=== PATIENT | male | born 1985 | race Caucasian/White ===

== ENCOUNTER 2018-04-15 12:33 | Emergency (ER) | payer MEDICAID ==
[2018-04-15] MEDS ORDERED: NS 1,000 ML IV ONE (13:14)
--- NOTE | 2018-04-15 13:16 | EDPHY ---
H & P Time Seen by Provider: 04/15/18 13:00 HPI/ROS: CHIEF COMPLAINT: Headache, palpitations HISTORY OF PRESENT ILLNESS: A 32-year-old male presents emergency department with concern regarding headache that he had that woke him at 4:00 a.m. This morning. He describes a severe retro-orbital and bitemporal headache. Headache resolved relatively quickly after taking some ibuprofen. Of note, he also reports that for the last 2 weeks he has been bothered with a severe head cold, alternating between being very congested and having clear nasal discharge. No fever. No sore throat. No ear pain. He also relates a history of occasional palpitations which seemed to be worse over the last 2 weeks. Feels some tingling in both legs, in a stocking-glove distribution from the knees on down. He also relates some weakness. No fevers or chills. No shortness of breath or chest pain associated with palpitations. No nausea, vomiting, or diarrhea. Patient states he has been drinking lots of fluids. REVIEW OF SYSTEMS: A comprehensive 10 system review of systems was reviewed and is otherwise negative aside from elements mentioned in the history of present illness and medical decision making. PAST MEDICAL HISTORY: Anxiety. Patient denies hypertension, diabetes, high cholesterol, migraines, family history of stroke. Family history sudden aneurysmal . SOCIAL HISTORY: Stop drinking 3 weeks ago and stopped using marijuana 3 weeks ago. Prior to that reports drinking moderately 3 to 4 times a week. VITAL SIGNS Reviewed by me. Afebrile. GENERAL: Well-developed, well-nourished, resting comfortably in no respiratory distress. HEENT: Atraumatic. Eyes: No icterus, no injection. SERVANDO, EOMI. Tympanic membranes are clear bilaterally. Mouth: moist mucous membranes. No erythema or lesions. Neck: supple with no adenopathy. Negative Kernig's. Negative Brudzinski's. No meningismus. LUNGS: Clear to auscultation bilaterally, no wheezes, rhonchi or rales. CARDIAC: Regular rate and rhythm, no rubs, murmurs or gallops. ABDOMEN: Soft, nontender, nondistended, bowel sounds normal. BACK: No CVA tenderness. EXTREMITIES: No trauma. No edema. Range of motion is normal throughout. NEURO: Alert and oriented, cranial nerves 2-12 are intact. Motor strength 5/ 5 throughout sensory exam is normal throughout. SKIN: Warm and dry, no rash. PSYCHIATRIC: Normal mentation, no agitation. Smoking Status: Former smoker Constitutional: Initial Vital Signs Temperature (C) 36.6 C 04/15/18 12:36 Heart Rate 69 04/15/18 12:36 Respiratory Rate 18 04/15/18 12:36 Blood Pressure 128/87 H 04/15/18 12:36 O2 Sat (%) 99 04/15/18 12:36 O2 Delivery Mode Room Air Allergies/Adverse Reactions: No Known Allergies Allergy (Verified 04/15/18 12:39) Home Medications: Medication Instructions Recorded Hydrocodone/APAP 5/325 [[place] 1 - 2 tab PO Q4H PRN #15 tab 06/22/15 5/325 (*)] Hydrocodone/APAP 5/325 [[place] 1 tab PO Q6 PRN #15 tab 06/27/15 5/325 (RX)] Medical Decision Making - Diagnostics Imaging Results: Imaging Impressions Chest X-Ray 04/15/18 13:14 Impression: Airways disease. No pneumonia. Head CT 04/15/18 13:14 Impression: 1. Normal CT brain without contrast. 2. No sinusitis. 3.Consider MRI of the brain, if there is continued clinical concern. Findings and recommendations discussed with Emergency Department physician, Caro Zaragoza MD at 14:20 hour, 04/15/2018. Final report concurs with initial preliminary interpretation. Imaging: Discussed imaging studies w/ scallop cutter machine Radiologist, I viewed and interpreted images myself ED Course/Re-evaluation: Differential for the headache includes subarachnoid hemorrhage, mass, sinusitis , dehydration. EKG obtained for the patient's reported palpitations. This demonstrates normal sinus rhythm. Electrolytes are normal. A head CT is negative for sinusitis or other acute issues. Remainder of the laboratory evaluation is normal. Patient was reassessed. He looks very well. He had had no headache when he presented and has no headache now. He is concerned regarding his sense of palpitations and sense of tingling in the legs. These have been present for years. We discussed follow up with primary care physician. He feels comfortable being discharged home with instructions regarding treatment for his head cold and referral to primary care physician and Cardiology. I do not believe he needs further imaging studies nor needs further evaluation for meningitis, or subarachnoid hemorrhage. Differential Diagnosis: After history was obtained, and the physical exam performed, a differential for headache was considered including, but not limited to, subarachnoid hemorrhage, migraine headache, tension headache and infectious causes such as meningitis, sinusitis, encephalitis. - Data Points Laboratory Results: Laboratory Results 04/15/18 13:20 04/15/18 13:20 04/15/18 04/15/18 04/15/18 14:00 13:20 13:20 WBC 5.47 10^3/uL 10^3/uL (3.80-9.50) RBC 4.95 10^6/uL 10^6/uL (4.40-6.38) Hgb 14.9 g/dL g/dL (13.7-17.5) Hct 43.7 % % (40.0-51.0) MCV 88.3 fL fL (81.5-99.8) MCH 30.1 pg pg (27.9-34.1) MCHC 34.1 g/dL g/dL (32.4-36.7) RDW 11.9 % % (11.5-15.2) Plt Count 228 10^3/uL 10^3/uL (150-400) MPV 8.8 fL fL (8.7-11.7) Neut % (Auto) 45.7 % % (39.3-74.2) Lymph % (Auto) 45.2 % H % (15.0-45.0) [place] % (Auto) 7.3 % % (4.5-13.0) Eos % (Auto) 0.9 % % (0.6-7.6) Baso % (Auto) 0.5 % % (0.3-1.7) Nucleat RBC Rel Count 0.0 % % (0.0-0.2) Absolute Neuts (auto) 2.50 10^3/uL 10^3/uL (1.70-6.50) Absolute Lymphs (auto) 2.47 10^3/uL 10^3/uL (1.00-3.00) Absolute Monos (auto) 0.40 10^3/uL 10^3/uL (0.30-0.80) Absolute Eos (auto) 0.05 10^3/uL 10^3/uL (0.03-0.40) Absolute Basos (auto) 0.03 10^3/uL 10^3/uL (0.02-0.10) Absolute Nucleated RBC 0.00 10^3/uL 10^3/uL (0-0.01) Immature Gran % 0.4 % % (0.0-1.1) Immature Gran # 0.02 10^3/uL 10^3/uL (0.00-0.10) Sodium 140 mEq/L mEq/L (135-145) Potassium 4.3 mEq/L mEq/L (3.5-5.2) Chloride 107 mEq/L mEq/L (97-110) Carbon Dioxide 23 mEq/l mEq/l (22-31) Anion Gap 10 mEq/L mEq/L (6-14) BUN 11 mg/dL mg/dL (7-23) Creatinine 0.7 mg/dL mg/dL (0.7-1.3) Estimated GFR > 60 Glucose 118 mg/dL H mg/dL (70-100) Calcium 9.2 mg/dL mg/dL (8.5-10.4) Urine Color PALE YELLOW Urine Appearance CLEAR Urine pH 7.0 (5.0-7.5) Ur Specific [place] 1.009 (1.002-1.030) Urine Protein NEGATIVE (NEGATIVE) Urine Ketones NEGATIVE (NEGATIVE) Urine Blood NEGATIVE (NEGATIVE) Urine Nitrate NEGATIVE (NEGATIVE) Urine Bilirubin NEGATIVE (NEGATIVE) Urine Urobilinogen NEGATIVE EU EU (0.2-1.0) Ur Leukocyte Esterase NEGATIVE (NEGATIVE) Urine RBC NONE SEEN /hpf /hpf (0-3) Urine WBC 1-3 /hpf /hpf (0-3) Ur Epithelial Cells NONE SEEN /lpf /lpf (NONE-1+) Urine Mucus TRACE /lpf /lpf (NONE-1+) Urine Glucose NEGATIVE (NEGATIVE) Medications Given: Discontinued Medications Acetaminophen (Tylenol) 1,000 mg PO EDNOW ONE Stop: 04/15/18 13:15 Last Admin: 04/15/18 13:32 Dose: Not Given Dexamethasone (Decadron Injection) 10 mg IVP EDNOW ONE Stop: 04/15/18 14:22 Last Admin: 04/15/18 14:34 Dose: Not Given Sodium Chloride (Ns) 1,000 mls @ 0 mls/hr IV ONCE ONE; Wide Open PRN Reason: Protocol Stop: 12/04/18 13:15 Last Admin: 04/15/18 13:31 Dose: 1,000 mls Departure - Departure Disposition: Home, Routine, Self-Care Clinical Impression: Headache above the eye region Sinusitis Qualifiers: Sinusitis location: unspecified location Chronicity: subacute Qualified Code(s) : J01.90 - Acute sinusitis, unspecified Condition: Fair Instructions: Analgesic/Decongestant (By mouth), Acute Headache (ED) Additional Instructions: Please use Tylenol or ibuprofen for headache pain and facial pain. If you continued to feel like you have a significant head cold, you may obtain Flonase nasal spray. This is available buyz-[email or web address]. Use as directed. Please follow up with primary care physician for further evaluation of your palpitations, sense of dehydration, and tingling. Return to emergency department or seek care urgently if you're symptoms are worsening despite the above treatment, if you develop shortness of breath, if you're unable to drink fluids secondary to nausea or other issues, if you developed vomiting, diarrhea, fevers, or other concerns. Referrals: NONE *PRIMARY CARE P,. [Primary Care Provider] - As per Instructions Senait Brooks MD [[facility] [place]] - As per Instructions (Call Dr. Brooks's office to establish follow-up. Be sure they are aware that this is an emergency department follow-up visit) Tejas Bejarano MD [Medical Doctor] - As per Instructions (Follow up with [facility] concerning your palpitations and symptoms of lightheadedness when standing)
[2018-04-15] MEDS: ACETAMINOPHEN 500 MG TAB PO ONE ×2 (13:31→13:32)
[2018-04-15 13:39] LABS: PLATELET COUNT 228 10^3/uL (150-400)
[2018-04-15] MEDS ORDERED: DEXAMETHASONE 10 MG/ML VIAL IVP ONE (14:21)
[2018-04-15 14:36] VITALS: BP 145/98
--- NOTE | 2018-04-15 22:47 | CPEKG ---
Test Reason : OPEN Blood Pressure : / mmHG Vent. Rate : 067 BPM Atrial Rate : 067 BPM P-R Int : 120 ms QRS Dur : 096 ms QT Int : 422 ms P-R-T Axes : 073 061 040 degrees QTc Int : 446 ms Sinus rhythm Probable left atrial enlargement Confirmed by Caro Zaragoza ([id number]) on 04/15/2018 10:47:00 PM Referred By: Confirmed By:Caro Zaragoza
== END 2018-04-15 14:49 | disposition home or self-care (01) ==
DX: R51 Headache (principal); J01.90 Acute sinusitis, unspecified; E86.9 Volume depletion, unspecified; F41.9 Anxiety disorder, unspecified; Z87.891 Personal history of nicotine dependence; Z82.49 Family history of ischemic heart disease and other diseases of the circulatory system
CPT/HCPCS: J1100